=== PATIENT | male | born 1945 | race Caucasian/White ===

== ENCOUNTER 2018-03-11 13:11 | Day surgery (SDC) | payer MEDICARE ==
[~2018-03-11] VITALS: Ht 167.6 cm; Wt 175.0 kg
[2018-03-11] MEDS ORDERED: MIDAZolam 5mg/5ml vial ONE (13:28)
[2018-03-11] MEDS ORDERED: fentaNYL/PF 50MCG/1 ML 2ML syringe ONE (13:28)
[2018-03-11] MEDS ORDERED: LIDOcaine Viscous 15ml cup ONE (13:29)
[2018-03-11] MEDS ORDERED: CALC-854 PO (13:37)
[2018-03-11] MEDS ORDERED: MVI (13:37)
[2018-03-11] MEDS ORDERED: PANT-47 PO (13:38)
[2018-03-11] MEDS ORDERED: VIT D (13:39)
[2018-03-11] MEDS ORDERED: CETI-102 PO (13:40)
[2018-03-11] MEDS ORDERED: ESCI10TA PO (13:40)
[2018-03-11] MEDS ORDERED: FLONASE (13:41)
[2018-03-11 13:44] VITALS: BP 113/78
[2018-03-11 14:05] VITALS: BP 119/67
[2018-03-11 14:15] VITALS: BP 105/68
[2018-03-11 14:25] VITALS: BP 109/67
== END 2018-03-11 14:50 | disposition home or self-care (01) ==
LOC: GI LAB 13:11
PROVIDERS: ATTEND Internal Medicine Gastroenterology
DX: R10.13 Epigastric pain (principal); R11.0 Nausea; K21.9 Gastro-esophageal reflux disease without esophagitis; Z87.891 Personal history of nicotine dependence; Z72.89 Other problems related to lifestyle; Z79.899 Other long term (current) drug therapy
CPT/HCPCS: 43235; G0500; J2250; J3010; J7030; A4620